=== PATIENT | male | born 1930 | race Caucasian/White ===

== ENCOUNTER → 2019-09-19 | Outpatient (CLI) | payer OTHER, MEDICARE ==
[~2019-09-19] VITALS: Ht 175.3 cm; Wt 77.1 kg
[~2019-09-19] MED LIST: ASA81BEC PO; FISH OIL 1,001000 M3 PO; LOPRESSOR50 MG PO; PROLIA60 MG/1 ML SUBQ; TERAZOSIN HCL10 MG PO; VITAMIN D3 COM1 EACH PO
[2019-09-19 13:48] VITALS: BP 144/83
[2019-09-19 15:00] VITALS: BP 142/73
[2019-09-19 15:15] VITALS: BP 142/73
[2019-09-19 15:30] VITALS: BP 133/63
[2019-09-19 15:45] VITALS: BP 146/77
== END | disposition home or self-care (01) ==
LOC: CATH 13:08
PROVIDERS: ATTEND Nuclear Medicine Nuclear Cardiology
DX: M54.9 Dorsalgia, unspecified (principal); M80.08XA Age-related osteoporosis with current pathological fracture, vertebra(e), initial encounter for fracture; I10 Essential (primary) hypertension; Z86.73 Personal history of transient ischemic attack (TIA), and cerebral infarction without residual deficits; Z98.49 Cataract extraction status, unspecified eye; Z98.890 Other specified postprocedural states; Z90.49 Acquired absence of other specified parts of digestive tract; Z79.899 Other long term (current) drug therapy